=== PATIENT | female | born 1975 | race Caucasian/White ===

== ENCOUNTER 2017-12-19 16:54 | Observation (INO) ==
[2017-12-19] MEDS ORDERED: NITROGLYCERIN 2% OINT 1 INCH/GM PACK TOP STA (17:13)
[2017-12-19] MEDS ORDERED: ONDANSETRON 4 MG/2 ML VIAL IV STA (17:13)
[2017-12-19] MEDS ORDERED: LORazepam 1 MG TABLET PO STA (17:13)
[2017-12-19] MEDS ORDERED: ALUM/MAG/SIMETH/LIDO VISC 1:1 30 ML BOTTLE PO STA (17:13)
[2017-12-19] MEDS ORDERED: HYDROmorphone 2 MG/1 ML VIAL IV STA (17:13)
[2017-12-19] MEDS ORDERED: SODIUM CHLORIDE 0.9% 500 ML IV STA (17:13)
[2017-12-19] MEDS ORDERED: ASPIRIN 325 MG TABLET PO STA (17:13)
[2017-12-19] MEDS ORDERED: NITROGLYCERIN 2% OINT 1 INCH/GM PACK TOP ONE (17:19)
[2017-12-19] MEDS ORDERED: ONDANSETRON 4 MG/2 ML VIAL ONE (17:20)
[2017-12-19] MEDS ORDERED: ASPIRIN 325 MG TABLET ONE (17:20)
[2017-12-19] MEDS ORDERED: ALUM/MAG/SIMETH/LIDO VISC 1:1 30 ML BOTTLE PO ONE (17:20)
[2017-12-19] MEDS ORDERED: LORazepam 1 MG TABLET ONE (17:20)
[2017-12-19 17:27] LABS: Basophils # 0.1 10*3/uL (0.0-0.2); Basophils % 0.8 % (0.0-0.8); Eosinophils % 0.4 % (0.00-10.9); Hematocrit 40.7 VOL% (35.7-47.0); Hemoglobin 13.9 GM/DL (12.0-16.0); Immature Granulocytes % 0.1 %; Immature Granulocytes Absolute 0.01 #; Lymphocytes # 2.9 10*3/uL (1.4-4.0); Lymphocytes % 39.3 % (21.3-54.2); Mean Corpuscular HGB Conc 34.2 GM/DL (32-36); Mean Corpuscular Hemoglobin 29 PG (27-34); Mean Corpuscular Volume 84.6 FL (87-102); Mean Platelet Volume 10.2 FL (9.6-12.0); Monocytes # 0.4 10*3/uL (0.11-0.8); Monocytes % 6.1 % (1.7-12.7); Neutrophils # 3.9 10*3/uL (1.4-7.4); Neutrophils % 53.3 % (38.7-73.9); Platelet Count 191 T/CUMM (130-400); Red Blood Count 4.81 MC/CUMM (3.8-5.5); Red Cell Distribution Width 12.6 % (9.3-17.3); White Blood Count 7.3 T/CUMM (4-12)
[2017-12-19] MEDS ORDERED: HYDROmorphone 2 MG/1 ML VIAL ONE (17:36)
[2017-12-19 17:39] LABS: PT Patient Result 10.4 SECS
[2017-12-19 17:45] LABS: Alanine Aminotransferase 17 U/L (13-56); Albumin 4.3 G/DL (3.4-5.0); Alkaline Phosphatase 67 U/L (45-117); Aspartate Amino Transferase 15 U/L (0-37); Bilirubin,Total < 0.39 MG/DL (0.2-1.0); Blood Urea Nitrogen 15 MG/DL (7-18); Calcium 9.3 MG/DL (8.5-10.1); Glucose 100 MG/DL (74-106); Osmolality,Calculated 273.8 MOS/KG (273-304); Potassium 4.5 MMOL/L (3.5-5.1); Sodium 137 MMOL/L (136-145); Total Protein 8.2 G/DL (6.4-8.3)
[2017-12-19] MEDS ORDERED: ENOXAPARIN 100 MG/ML SYRINGE SUBCUT STA (18:03)
[2017-12-19 18:04] LABS: Apearance,Urine CLOUDY (Clear); Bacteria,Urine Occasional /HPF (Few); Bilirubin,Urine Negative (Negative); Blood, Urine Negative (Negative); Glucose,Urine (UA) Negative (Negative); Ketones,Urine Negative (Negative); Mucus,Urine Occasional /LPF (Occasional); Nitrite,Urine Negative (Negative); Protein,Urine Negative; RBC,Urine 1 /HPF (0-4); Squamous Epithelial Cell,Urine Occasional /HPF (0-10); Urine Color Straw (Yellow); Urine Specific Gravity 1.003 (1.001-1.035); Urine Urobilinogen < 2.0 EU/DL (0.2-1.0); WBC,Urine 2 /HPF (0-6)
[2017-12-19] MEDS ORDERED: ENOXAPARIN 100 MG/ML SYRINGE SUBCUT ONE (18:09)
[2017-12-19 18:11] LABS: Barbiturates Screen,Urine Negative (Negative); Benzodiazepines Screen,Urine Negative (Negative); Cannabinoid Screen,Urine Negative (Negative); Opiate Screen,Urine Negative (Negative); Phencyclidine Screen,Urine Negative (Negative)
[2017-12-19] MEDS ORDERED: ONDANSETRON 4 MG/2 ML VIAL IV PRN (18:27)
[2017-12-19] MEDS ORDERED: ALUM/MAG/SIMETH/LIDO VISC 1:1 30 ML BOTTLE PO PRN (18:28)
[2017-12-19] MEDS ORDERED: SODIUM CHLORIDE 0.9% 1,000 ML IV SCH (18:30)
[2017-12-19] MEDS: ACETAMINOPHEN 325 MG TABLET PO PRN (20:17)
[2017-12-19] MEDS ORDERED: ACETAMINOPHEN 325 MG TABLET ONE (20:18)
[2017-12-19] MEDS: FAMOTIDINE 20 MG TABLET PO SCH (21:12)
[2017-12-19] MEDS: TOPIRAMATE 100 MG TABLET PO SCH (21:12)
[2017-12-20] MEDS: ACETAMINOPHEN 325 MG TABLET PO PRN ×2 (01:02→08:39)
[2017-12-20] MEDS: SODIUM CHLORIDE 0.9% 1,000 ML IV SCH ×3 (03:16→15:05)
[2017-12-20] MEDS ORDERED: SODIUM CHLORIDE 0.9% 1,000 ML IV SCH (04:13)
[2017-12-20 05:06] LABS: Basophils % 0.6 % (0.0-0.8); Eosinophils # 0.1 10*3/uL (0.0-0.87); Eosinophils % 1.2 % (0.00-10.9); Hematocrit 33.6 VOL% (35.7-47.0); Hemoglobin 12.1 GM/DL (12.0-16.0); Immature Granulocytes % 0.2 %; Immature Granulocytes Absolute 0.01 #; Lymphocytes # 2.5 10*3/uL (1.4-4.0); Lymphocytes % 49.8 % (21.3-54.2); Mean Corpuscular Hemoglobin 30 PG (27-34); Mean Corpuscular Volume 82.6 FL (87-102); Mean Platelet Volume 10.7 FL (9.6-12.0); Monocytes # 0.4 10*3/uL (0.11-0.8); Monocytes % 7.9 % (1.7-12.7); Neutrophils # 2.1 10*3/uL (1.4-7.4); Neutrophils % 40.3 % (38.7-73.9); Platelet Count 147 T/CUMM (130-400); Red Blood Count 4.07 MC/CUMM (3.8-5.5); Red Cell Distribution Width 12.7 % (9.3-17.3); White Blood Count 5.1 T/CUMM (4-12)
[2017-12-20 05:33] LABS: Calcium 8.1 MG/DL (8.5-10.1); Osmolality,Calculated 278.3 MOS/KG (273-304); Potassium 3.7 MMOL/L (3.5-5.1)
[2017-12-20 05:57] LABS: Risk Ratio 2.69; VLDL CHOLESTEROL 18.4 MG/DL
[2017-12-20] MEDS: PANTOPRAZOLE 40 MG TABLET PO SCH (08:38)
[2017-12-20] MEDS: FAMOTIDINE 20 MG TABLET PO SCH ×2 (08:39→20:48)
[2017-12-20] MEDS: TOPIRAMATE 100 MG TABLET PO SCH ×2 (08:40→20:48)
[2017-12-20] MEDS: SIMETHICONE CHEW 125 MG TABLET PO SCH ×3 (09:27→20:48)
[2017-12-21] MEDS: SODIUM CHLORIDE 0.9% 1,000 ML IV SCH ×4 (02:40→15:30)
[2017-12-21] MEDS: FAMOTIDINE 20 MG TABLET PO SCH (08:15)
[2017-12-21] MEDS: PANTOPRAZOLE 40 MG TABLET PO SCH (08:15)
[2017-12-21] MEDS: SIMETHICONE CHEW 125 MG TABLET PO SCH ×2 (08:15→15:30)
[2017-12-21] MEDS: TOPIRAMATE 100 MG TABLET PO SCH (08:15)
[2017-12-21] MEDS ORDERED: PROPOFOL 200 MG/20 ML VIAL IV ONE (11:39)
[2017-12-21] MEDS ORDERED: LIDOCAINE 100 MG/5 ML SYRINGE ONE (11:39)
[2017-12-21 12:26] VITALS: BP 123/062
== END 2017-12-21 15:37 | disposition home or self-care (01) ==
LOC: N.ED 16:54 → N.EDINP 16:54 → N.TELES 20:34
PROVIDERS: ADMIT Internal Medicine; ATTEND Internal Medicine

== ENCOUNTER 2021-07-11 18:24 | Observation (INO) ==
[2021-07-11] MEDS ORDERED: ASPIRIN 325 MG TABLET PO STA (18:59)
[2021-07-11] MEDS ORDERED: NITROGLYCERIN 2% OINT 1 INCH/GM PACK TOP STA (18:59)
[2021-07-11] MEDS ORDERED: ALUM/MAG/SIMETH/LIDO VISC 1:1 30 ML BOTTLE PO STA (18:59)
[2021-07-11] MEDS ORDERED: ONDANSETRON 4 MG/2 ML VIAL IV STA (18:59)
[2021-07-11] MEDS ORDERED: HYDROmorphone 2 MG/1 ML VIAL IV ONE (19:01)
[2021-07-11 19:38] LABS: Basophils % 0.4 % (0.0-0.8); Eosinophils # 0.1 10*3/uL (0.0-0.87); Eosinophils % 1.7 % (0.00-10.9); Hematocrit 36.8 VOL% (35.7-47.0); Hemoglobin 12.3 GM/DL (12.0-16.0); Immature Granulocytes % 0.2 %; Immature Granulocytes Absolute 0.01 #; Lymphocytes # 3.2 10*3/uL (1.4-4.0); Mean Corpuscular HGB Conc 33.4 GM/DL (32-36); Mean Corpuscular Volume 84.8 FL (87-102); Mean Platelet Volume 10.9 FL (9.6-12.0); Monocytes % 6.3 % (1.7-12.7); Neutrophils % 32.4 % (38.7-73.9); Platelet Count 167 T/CUMM (130-400); Red Blood Count 4.34 MC/CUMM (3.8-5.5); Red Cell Distribution Width 12.7 % (9.3-17.3); White Blood Count 5.4 T/CUMM (4-12)
[2021-07-11 19:47] LABS: INR 1.1; PT Patient Result 11.8 SECS (10.5-12.0)
[2021-07-11 20:00] LABS: Eosinophils 2 % (0-10); Lymphocytes 58 % (20-55); Segmented Neutrophils 37 % (50-85); Total Cells Counted 100
[2021-07-11 20:03] LABS: Anisocytosis Slight; Microcytosis Slight; Reactive Lymphocytes 1+
[2021-07-11 20:04] LABS: Albumin 3.9 G/DL (3.4-5.0); Bilirubin,Total 0.4 MG/DL (0.20-1.00); Calcium 8.5 MG/DL (8.5-10.1); Osmolality,Calculated 277.4 MOS/KG (273-304); Platelet Estimate Adequate; Potassium 3.7 MMOL/L (3.5-5.1); Total Protein 7.3 G/DL (6.4-8.2)
[2021-07-11 20:21] LABS: Amorphous Crystals,Urine Occasional /HPF (Few); Bacteria,Urine Moderate /HPF (Few); Bilirubin,Urine Negative (Negative); Blood, Urine Negative (Negative); Calcium Oxalate Crystals,Urine Occasional /HPF (Few); Glucose,Urine (UA) Negative (Negative); Ketones,Urine 5 mg/dL (Negative); Mucus,Urine Occasional /LPF (Occasional); Nitrite,Urine Negative (Negative); Protein,Urine Negative; RBC,Urine 3 /HPF (0-4); Squamous Epithelial Cell,Urine Occasional /HPF (0-10); Urine Appearance CLOUDY (Clear); Urine Color Yellow (Yellow); Urine Specific Gravity 1.018 (1.001-1.035); Urine Urobilinogen < 2.0 EU/DL (0.2-1.0)
[2021-07-11 20:23] LABS: Barbiturates Screen,Urine Negative (Negative); Benzodiazepines Screen,Urine Negative (Negative); Cannabinoid Screen,Urine Negative (Negative); Opiate Screen,Urine Positive (Negative); Phencyclidine Screen,Urine Negative (Negative)
[2021-07-11] MEDS ORDERED: ONDANSETRON 4 MG/2 ML VIAL IV PRN (23:48)
[2021-07-12] MEDS ORDERED: HYDROmorphone 2 MG/1 ML VIAL ONE (01:15)
[2021-07-12] MEDS ORDERED: HYDROmorphone 2 MG/1 ML VIAL IV STA (01:22)
[2021-07-12] MEDS ORDERED: diphenhydrAMINE CAP 25 MG CAPSULE PO PRN (03:57)
[2021-07-12] MEDS ORDERED: NITROGLYCERIN SL 0.4 MG TABLET SL PRN (07:11)
[2021-07-12] MEDS ORDERED: ALUM/MAG/SIMETH/LIDO VISC 1:1 30 ML BOTTLE PO ONE (07:11)
[2021-07-12] MEDS ORDERED: tiZANidine 4 MG TABLET PO PRN (09:48)
[2021-07-12] MEDS ORDERED: RIZATRIPTAN ODT 5 MG TABLET PO PRN (09:48)
[2021-07-12] MEDS ORDERED: PROMETHAZINE 25 MG TABLET PO PRN (09:48)
[2021-07-12] MEDS ORDERED: CYCLOBENZAPRINE 10 MG TABLET PO PRN (09:48)
[2021-07-12] MEDS ORDERED: SEMAGLUTIDE 0.5 MG/0.5 ML SUBCUT SCH (10:00)
[2021-07-12] MEDS: PANTOPRAZOLE 40 MG TABLET PO SCH ×2 (10:00→20:23)
[2021-07-12] MEDS ORDERED: ADALIMUMAB 40 MG/0.4 ML SUBCUT SCH (10:00)
[2021-07-12] MEDS ORDERED: [UNRECOGNIZED DRUG - OTHER] SUBCUT SCH (10:00)
[2021-07-12] MEDS: ERGOCALCIFEROL 50,000 UNIT CAPSULE PO SCH ×2 (10:00→10:18)
[2021-07-12] MEDS: ONDANSETRON 4 MG TABLET PO SCH ×2 (11:52→17:49)
[2021-07-12] MEDS: ALUMINUM/MAGNES/SIMETH MAX STR 30 ML UDCUP PO PRN ×2 (13:46→17:51)
[2021-07-12] MEDS: ALUM/MAG/SIMETH/LIDO VISC 1:1 30 ML BOTTLE PO PRN (19:42)
[2021-07-12] MEDS: TOPIRAMATE 100 MG TABLET PO SCH (20:23)
[2021-07-13] MEDS: ONDANSETRON 4 MG TABLET PO SCH ×3 (01:13→18:14)
[2021-07-13] MEDS: ALUM/MAG/SIMETH/LIDO VISC 1:1 30 ML BOTTLE PO PRN ×2 (05:17→14:30)
[2021-07-13 05:31] LABS: Basophils % 0.5 % (0.0-0.8); Eosinophils # 0.1 10*3/uL (0.0-0.87); Hemoglobin 11.5 GM/DL (12.0-16.0); Lymphocytes # 2.2 10*3/uL (1.4-4.0); Lymphocytes % 53.2 % (21.3-54.2); Mean Corpuscular HGB Conc 32.9 GM/DL (32-36); Mean Corpuscular Volume 86.8 FL (87-102); Mean Platelet Volume 10.7 FL (9.6-12.0); Monocytes % 7.1 % (1.7-12.7); Neutrophils % 37.2 % (38.7-73.9); Platelet Count 153 T/CUMM (130-400); Red Blood Count 4.03 MC/CUMM (3.8-5.5); Red Cell Distribution Width 12.5 % (9.3-17.3); White Blood Count 4.1 T/CUMM (4-12)
[2021-07-13 06:08] LABS: Albumin 3.2 G/DL (3.4-5.0); Bilirubin,Total 0.9 MG/DL (0.20-1.00); Calcium 8.4 MG/DL (8.5-10.1); Eosinophils 5 % (0-10); Hypochromasia Slight; Lymphocytes 52 % (20-55); Microcytosis Slight; Osmolality,Calculated 280.1 MOS/KG (273-304); Platelet Estimate Adequate; Potassium 3.9 MMOL/L (3.5-5.1); Segmented Neutrophils 42 % (50-85); Total Cells Counted 100; Total Protein 6.5 G/DL (6.4-8.2)
[2021-07-13] MEDS ORDERED: LACTATED RINGERS 1,000 ML IV SCH (08:00)
[2021-07-13] MEDS: TOPIRAMATE 100 MG TABLET PO SCH ×2 (12:59→20:44)
[2021-07-13] MEDS: PANTOPRAZOLE 40 MG TABLET PO SCH (13:00)
[2021-07-13] MEDS ORDERED: ALUM/MAG/SIMETH/LIDO VISC 1:1 30 ML BOTTLE PO PRN (15:28)
[2021-07-13] MEDS ORDERED: ALUM/MAG/SIMETH/LIDO VISC 1:1 30 ML BOTTLE PO SCH (17:00)
[2021-07-13] MEDS ORDERED: traMADol 50 MG TABLET PO ONE ×2 (17:02)
[2021-07-13] MEDS: traMADol 50 MG TABLET PO PRN (18:14)
[2021-07-13] MEDS: PANTOPRAZOLE 40 MG VIAL IV SCH (20:44)
[2021-07-14] MEDS: traMADol 50 MG TABLET PO PRN ×3 (02:45→17:26)
[2021-07-14] MEDS: ONDANSETRON 4 MG TABLET PO SCH ×3 (02:45→17:21)
[2021-07-14 05:27] LABS: Basophils % 0.4 % (0.0-0.8); Eosinophils # 0.1 10*3/uL (0.0-0.87); Eosinophils % 1.5 % (0.00-10.9); Hemoglobin 12.4 GM/DL (12.0-16.0); Immature Granulocytes % 0.5 %; Immature Granulocytes Absolute 0.04 #; Lymphocytes # 2.6 10*3/uL (1.4-4.0); Lymphocytes % 33.9 % (21.3-54.2); Mean Corpuscular HGB Conc 33.5 GM/DL (32-36); Mean Corpuscular Volume 86.2 FL (87-102); Mean Platelet Volume 11.4 FL (9.6-12.0); Monocytes % 6.1 % (1.7-12.7); Neutrophils % 57.6 % (38.7-73.9); Platelet Count 155 T/CUMM (130-400); Red Blood Count 4.29 MC/CUMM (3.8-5.5); Red Cell Distribution Width 12.4 % (9.3-17.3); White Blood Count 7.5 T/CUMM (4-12)
[2021-07-14 05:47] LABS: Albumin 3.4 G/DL (3.4-5.0); Bilirubin,Total 0.6 MG/DL (0.20-1.00); Calcium 8.5 MG/DL (8.5-10.1); Osmolality,Calculated 273.7 MOS/KG (273-304); Potassium 3.4 MMOL/L (3.5-5.1); Total Protein 6.7 G/DL (6.4-8.2)
[2021-07-14] MEDS: TOPIRAMATE 100 MG TABLET PO SCH (09:55)
[2021-07-14] MEDS: POTASSIUM CHLORIDE RIDER 10 MEQ/100 ML PREMIX IV SCH ×2 (09:57→10:37)
[2021-07-14] MEDS: PANTOPRAZOLE 40 MG VIAL IV SCH (09:57)
[2021-07-14] MEDS ORDERED: ASPIRIN EC 81 MG TABLET PO SCH (10:00)
[2021-07-14] MEDS: SODIUM CHLOR 0.9% KCL 40 MEQ 40 MEQ/1,000 ML BAG IV SCH ×2 (11:44→18:45)
[2021-07-14 16:21] VITALS: BP 98/54
== END 2021-07-14 18:40 | disposition home or self-care (01) ==
LOC: N.EDINP 18:24 → N.ED 18:24 → N.2W 07-12 03:21 → SUATTDRO 07-12 09:57
PROVIDERS: ADMIT Internal Medicine; ATTEND Internal Medicine